=== PATIENT | female | born 1980 | race Hispanic/Latino ===

== ENCOUNTER 2018-11-22 08:16 | Emergency (ER) | payer SELFPAY ==
[2018-11-22] MEDS ORDERED: Ondansetron PF 4 MG/2 ML Vial ONE (09:04)
[2018-11-22 09:41] LABS: #Basophils 0.1 thou/uL (0.0-0.2); #Eosinphils 0.1 thou/uL (0.0-0.7); #Lymphocytes 1.7 thou/uL (1.20-3.40); #Monocytes 0.5 thou/uL (0.11-0.59); #Neutrophils 5.3 thou/uL (1.40-6.50); %Lymphocytes 22.6 % (21.0-51.0); %Monocytes 6.3 % (0.0-10.0); %Neutrophils 69.1 % (42.0-75.0); Mean Corpuscular HGB CONC 31.8 g/dL (32.0-36.0); Mean Corpuscular Hemoglobin 27.6 pg (27.0-31.0); Mean Corpuscular Volume 86.7 fL (78.0-98.0); Mean Platelet Volume 8.7 fL (7.4-10.4); Platelet Count 314 thou/uL (130-400); RBC Distribution Width 15.9 % (11.5-14.5); White Blood Cell (WBC) Count 7.7 thou/uL (4.8-10.8)
[2018-11-22 09:52] LABS: BHCG - Serum POSITIVE (NEGATIVE); Pregs Control Background? CLEAR/WHITE (CLR/WHITE); Pregs Control Bar Appear? YES (CONTROL BAR)
[2018-11-22 09:53] LABS: Bilirubin Negative (Negative); Blood, Urine Negative (Negative); Clarity CLOUDY (Clear); Glucose, Urine (Dipstick) Negative (Negative); Leukocyte Negative (Negative); Nitrite Negative (Negative); Protein, Urine (Dipstick) Negative (Neg-Trace); Specific Gravity, Urine 1.014 (1.002-1.036); Urobilinogen 0.2 mg/dL (0.2-1.0); pH, Urine 7.5 (5.0-9.0)
--- NOTE | 2018-11-22 10:33 | ULT ---
ULTRASOUND PELVIS DOPPLER DUPLEX: HISTORY: A 38-year-old female with positive test, nausea, and vomiting. Rule out ectopic . TECHNIQUE: Transabdominal transducer used to evaluate intrapelvic contents with raymond scale, color flow, and spec tral analysis. FINDINGS: There is an intrauterine gestational sac. Intrauterine pole. [place] rump length 1.8 cm corresponding to 8w 2d. No subchorionic hemorrhage. heart rate: 160 bpm. No free fluid in the cul-de-sac. No evidence of corpus luteal cyst. Normal-sized bilateral ovaries with blood flow demonstrated by Doppler. IMPRESSION: 1. Live intrauterine 1st trimester gestation estimated to be 8 weeks 2 days gestational age. 2. No evidence of complications. POS: RADHA
[2018-11-22 10:45] LABS: Albumin 3.5 g/dL (3.5-5.0); Calcium 8.4 mg/dL (7.8-10.44); Chloride 105 mmol/L (98-107); Potassium 3.9 mmol/L (3.5-5.1); Sodium 133 mmol/L (136-145)
[2018-11-22 10:48] LABS: Globulin 2.9 g/dL (2.4-3.5); Glucose 67 mg/dL (70-105); Protein, Total 6.4 g/dL (6.0-8.3)
[2018-11-22 10:49] LABS: Anion Gap 9 mmol/L (10-20); Carbon Dioxide 23 mmol/L (22-29)
[2018-11-22 10:50] LABS: Bilirubin, Total 0.2 mg/dL (0.2-1.2)
[2018-11-22 10:51] LABS: Alkaline Phosphatase 47 U/L (40-150); Calc. Creatinine Clearance 0 mL/min (70-130); Estimated GFR-MDRD Greater than 90
[2018-11-22 10:52] LABS: BUN (Urea Nitrogen) 7 mg/dL (7.0-18.7)
[2018-11-22 10:53] LABS: AST (SGOT) 14 U/L (5-34)
[2018-11-22 10:54] LABS: ALT (SGPT) 10 U/L (8-55)
== END 2018-11-22 11:10 | disposition home or self-care (01) ==
LOC: ERS 08:16
DX: O21.0 Mild hyperemesis gravidarum (principal); O99.341 Other mental disorders complicating pregnancy, first trimester; F41.9 Anxiety disorder, unspecified; F31.9 Bipolar disorder, unspecified; O99.331 Smoking (tobacco) complicating pregnancy, first trimester; Z79.899 Other long term (current) drug therapy; Z3A.01 Less than 8 weeks gestation of pregnancy
CPT/HCPCS: 36415; 76856; 80053; 81003; 84702; 84703; 85025; 86900; 86901; 87804; 93976; 96361; 96374; J2405

== ENCOUNTER 2018-11-26 20:21 | Emergency (ER) | payer SELFPAY ==
[2018-11-26 21:40] LABS: #Basophils 0.1 thou/uL (0.0-0.2); #Eosinphils 0.1 thou/uL (0.0-0.7); #Lymphocytes 2.4 thou/uL (1.20-3.40); #Monocytes 0.6 thou/uL (0.11-0.59); #Neutrophils 5.9 thou/uL (1.40-6.50); %Basophils 0.7 % (0.0-1.0); %Eosinophils 1.3 % (0.0-10.0); %Lymphocytes 25.8 % (21.0-51.0); %Monocytes 7.1 % (0.0-10.0); %Neutrophils 65.1 % (42.0-75.0); Hemoglobin 11.8 g/dL (12.0-16.0); Mean Corpuscular Hemoglobin 28.4 pg (27.0-31.0); Mean Platelet Volume 7.4 fL (7.4-10.4); Platelet Count 322 thou/uL (130-400); RBC Distribution Width 15.1 % (11.5-14.5); Red Blood Cell (RBC) Count 4.16 mill/uL (4.20-5.40); White Blood Cell (WBC) Count 9.1 thou/uL (4.8-10.8)
[2018-11-26 22:00] LABS: ALT (SGPT) 13 U/L (8-55); AST (SGOT) 16 U/L (5-34); Albumin 3.9 g/dL (3.5-5.0); Alkaline Phosphatase 54 U/L (40-150); Anion Gap 10 mmol/L (10-20); BUN (Urea Nitrogen) 13 mg/dL (7.0-18.7); Bilirubin, Total Less than 0.2 mg/dL (0.2-1.2); Calc. Creatinine Clearance 0 mL/min (70-130); Calcium 9.5 mg/dL (7.8-10.44); Carbon Dioxide 27 mmol/L (22-29); Chloride 101 mmol/L (98-107); Estimated GFR-MDRD 74; Globulin 3.3 g/dL (2.4-3.5); Glucose 94 mg/dL (70-105); Potassium 3.8 mmol/L (3.5-5.1); Protein, Total 7.2 g/dL (6.0-8.3); Sodium 134 mmol/L (136-145)
[2018-11-26] MEDS ORDERED: Ondansetron ODT 4 MG TAB ONE (22:12)
[2018-11-26 22:13] LABS: Bilirubin Negative (Negative); Blood, Urine Negative (Negative); Glucose, Urine (Dipstick) Negative (Negative); Leukocyte Negative (Negative); Nitrite Negative (Negative); Protein, Urine (Dipstick) Negative (Neg-Trace); Specific Gravity, Urine 1.019 (1.002-1.036); Urobilinogen 0.2 mg/dL (0.2-1.0); pH, Urine 7.5 (5.0-9.0)
[2018-11-26 22:14] LABS: Clarity Slightly Cloudy (Clear)
== END 2018-11-26 23:38 | disposition home or self-care (01) ==
LOC: ERS 20:21
DX: O21.9 Vomiting of pregnancy, unspecified (principal); O99.331 Smoking (tobacco) complicating pregnancy, first trimester; Z3A.01 Less than 8 weeks gestation of pregnancy
CPT/HCPCS: 36415; 80053; 81003; 85025; 87086; 87186; 99284; Q0162

== ENCOUNTER 2019-06-04 15:35 | Inpatient (IN) | payer OTHER ==
[2019-06-04 15:51] VITALS: BMI 25.7
[2019-06-04] MEDS ORDERED: Ondansetron PF 4 MG/2 ML Vial IVP PRN (15:55)
[2019-06-04] MEDS: Lactated Ringer's 1,000 ML IV SCH (15:59)
[2019-06-04] MEDS ORDERED: hydrALAZINE 20 MG/ML VIAL ONE (16:02)
[2019-06-04] MEDS: hydrALAZINE 20 MG/ML VIAL SLOW IVP PRN ×2 (16:04→19:38)
[2019-06-04] MEDS ORDERED: Betamet Acet/Betamet Na Ph 30 MG/5 ML VIAL ONE (16:18)
[2019-06-04] MEDS: Betamet Acet/Betamet Na Ph 30 MG/5 ML VIAL IM SCH (16:27)
[2019-06-04 16:35] LABS: Hemoglobin 9.2 g/dL (12.0-16.0); Mean Corpuscular HGB CONC 32.3 g/dL (32.0-36.0); Mean Corpuscular Volume 80.5 fL (78.0-98.0); Platelet Count 175 thou/uL (130-400); RBC Distribution Width 16.2 % (11.5-14.5); Red Blood Cell (RBC) Count 3.53 mill/uL (4.20-5.40); White Blood Cell (WBC) Count 7.3 thou/uL (4.8-10.8)
[2019-06-04 17:00] LABS: ALT (SGPT) 15 U/L (8-55); AST (SGOT) 26 U/L (5-34); Albumin 2.9 g/dL (3.5-5.0); Alkaline Phosphatase 290 U/L (40-150); Anion Gap 14 mmol/L (10-20); BUN (Urea Nitrogen) 15 mg/dL (7.0-18.7); Bilirubin, Total 0.2 mg/dL (0.2-1.2); Calc. Creatinine Clearance 93 mL/min (70-130); Calcium 8.5 mg/dL (7.8-10.44); Carbon Dioxide 21 mmol/L (22-29); Chloride 106 mmol/L (98-107); Estimated GFR-MDRD 83; Globulin 3.3 g/dL (2.4-3.5); Glucose 83 mg/dL (70-105); Potassium 4.7 mmol/L (3.5-5.1); Protein, Total 6.2 g/dL (6.0-8.3); Sodium 136 mmol/L (136-145)
[2019-06-04 17:19] LABS: Syphilis Antibody Nonreactive (Nonreactive)
[2019-06-04 17:20] LABS: HBSAg Index 0.13 S/CO (0-0.99); HIV (1/2) Antibody/Antigen Non-Reactive (NonReactive); HIV 1/2 INDEX 0.06 S/CO (<1.00); Hep B Surf Ag Non-Reactive S/CO (NonReactive)
--- NOTE | 2019-06-04 17:30 | ULT ---
EXAM: OB ultrasound COMPARISON: None HISTORY: female. Evaluate size, dates, and anatomy. -induced hypertension. No care. TECHNIQUE: Multiplanar grayscale and color Doppler images were obtained in a transabdominal ult rasound. FINDINGS: There is a single live intrauterine with heart rate of 150 bpm. A survey wa s performed which is unremarkable but limited. The intracranial structures and face were not well visualized. The head, heart, stomach, kidneys, umbilical cord, umbilical cord insertion, spine, and e xtremities were evaluated and were unremarkable. Estimated weight is 2345 g. Average age of the fetus based off today's examination is 33 weeks 4 days. BPD 8.13 cm -- 32 weeks 5 days HC 30.25 cm -- 33 weeks 4 days AC 30.95 cm -- 34 weeks 6 days FL 6.44 cm -- 33 weeks 2 days The placenta is posterior in location without focal abnormality. CHRISTOPHER is 11.3 cm which is normal. The cervix is normal in length. There is no evidence of placenta previa. IMPRESSION: Single live intrauterine with estimated age of 33 weeks 4 days.
[2019-06-04 17:59] LABS: Amphetamine Detected (NotDetected); Cocaine Metabolite Screen Not Detected (NotDetected); Medtox Reader # READER 4; Methamphetamine Detected (NotDetected); Phencyclidine (PCP) Not Detected (NotDetected); THC/Cannabinoid Screen Not Detected (NotDetected)
[2019-06-04 18:00] LABS: Barbiturates Screen Not Detected (NotDetected); Benzodiazepine Screen Not Detected (NotDetected); Medtox Control Line Valid? VALID (VALID); Methadone Not Detected (NotDetected); Opiate Screen Not Detected (NotDetected); Oxycodone Screen Not Detected (NotDetected); Tricyclic Screen Not Detected (NotDetected)
[2019-06-04 18:02] LABS: Bilirubin Negative (Negative); Blood, Urine Negative (Negative); Clarity Clear (Clear); Glucose, Urine (Dipstick) Normal (Negative); Leukocyte 25 Leu/uL (Negative); Nitrite Negative (Negative); Protein, Urine (Dipstick) Negative (Neg-Trace); RBC/HPF 0-3 HPF (0-3); Squamous Epithelial 0-3 HPF (0-3); Urobilinogen Normal mg/dL (Less than 2)
[2019-06-04 18:03] LABS: Bacteria/HPF 1+ HPF (None Seen)
[2019-06-04] MEDS ORDERED: Calcium Gluc 4.6 MEQ/10 ML (100 MG/ML) SLOW IVP PRN (18:28)
[2019-06-04] MEDS ORDERED: Misoprostol 100 MCG TAB ONE (18:28)
[2019-06-04] MEDS ORDERED: Magnesium Sulfate 20 GM/WATER 500 ML BAG IVPB SCH (18:30)
[2019-06-04] MEDS: Magnesium Sulfate 20 gm/500 ml 20 GM/500 ML BAG IVPB SCH (18:41)
[2019-06-05] MEDS: Acetaminophen 500 MG TAB PO PRN (00:02)
--- NOTE | 2019-06-05 02:11 | HP ---
The patient has had no care. CHIEF COMPLAINT: Elevated blood pressures. HISTORY OF PRESENT ILLNESS: The patient is a 39-year-old G9, P7 female, with an intrauterine at 35 weeks and 5 days, dated by an 8-week ultrasound done earlier this year in the emergency room. The patient was picked up last night for parole violation and was taken to [facility] and there was noted to have elevated blood pressures and not feeling well and came here for evaluation. The patient reports headache, some shortness of breath. She denies any care with this . She reports marijuana use and methamphetamine use with the last methamphetamine use about a week to 2 weeks ago. The patient denies any previous history of preeclampsia with previous 8 pregnancies. PAST MEDICAL HISTORY: Negative. PAST SURGICAL HISTORY: Negative. ALLERGIES: NO KNOWN DRUG ALLERGIES. MEDICATIONS: None. SOCIAL HISTORY: Has had a very unstable social situation. She has been recently incarcerated for parole violation. The patient again uses methamphetamines, smokes marijuana and tobacco. The patient also reports drinking 3 beers a week early in the . PHYSICAL EXAMINATION: VITAL SIGNS: Initial blood pressure is 181/96, heart rate of 78, respiratory rate of 18, saturating 100% on room air, temperature 97.9. GENERAL: She appears to be in no acute distress. She is alert, oriented, cooperative, and pleasant to interact with. HEAD: Normocephalic, atraumatic. LUNGS: Clear to auscultation bilaterally. HEART: Regular rate and rhythm. ABDOMEN: Gravid. She has some tenderness to deviation of the uterus to the left and right. No fundal tenderness. EXTREMITIES: Nontender, nonedematous with 1+ edema bilaterally. DTRs are 1+. CERVICAL: Closed. OB LABS: Hepatitis B surface antigen nonreactive. HIV nonreactive. RPR nonreactive. All performed today. Drug screen is positive for methamphetamines. Urine test is negative for protein. CMP has a sodium of 136, potassium of 4.7, creatinine of 0.77, glucose of 83, AST of 26, ALT of 15. White count of 7.3, hemoglobin of 9.2, hematocrit 28.4, MCV of 80.5, and platelets of 175,000. Ultrasound shows a fetus with CHRISTOPHER of 11 and estimated weight of 2245 g, posterior placenta, and no visible gross abnormalities. The patient has required 2 doses of IV hydralazine over a three and half hour period. Now we are requiring a 3rd dose. She has been placed on magnesium for seizure prophylaxis. ASSESSMENT AND PLAN: The patient is a 39-year-old grand multiparous female with an intrauterine at 35 weeks and 5 days, dated by an 8-week ultrasound, who has received no care. The patient has a history of methamphetamine, marijuana abuse. She has recently been incarcerated and has evidence of severe gestational hypertension, though no overt signs at this time of preeclampsia. The patient has required multiple treatments for her blood pressures given her gestational age of 35 and 5 to 36 weeks gestation depending on how it is calculated. Indication at this time is for delivery. Fetus has a reactive NST in category 1 tracing. Betamethasone has been given to her to accelerate lung maturity. We will begin her induction of labor with Cytotec once the patient is on board. The patient at this time is refusing any compliance with induction. I have spent about 10 minutes explaining to her the natural course of these hypertensive disorders in and the long-term treatment plan. We will continue to treat her blood pressures, and continue the patient on magnesium and reassess the patient's compliance with these recommendations in the next hour or 2. Job ID: [id number]
[2019-06-05] MEDS: Lactated Ringer's 1,000 ML IV SCH ×3 (03:05→19:18)
[2019-06-05] MEDS: Magnesium Sulfate 20 gm/500 ml 20 GM/500 ML BAG IVPB SCH (03:05)
--- NOTE | 2019-06-05 09:16 | PRG ---
DATE OF SERVICE: 06/05/2019 SUBJECTIVE: The patient is a 39-year-old female, admitted yesterday for severe elevated blood pressures at the [facility] and was admitted for gestational hypertension with severe features requiring 3 doses of IV hydralazine over the first several hours of care. The patient was ultimately placed on magnesium since yesterday evening. Late, the patient has had normal to mild range blood pressures. This morning, she reports that she slept okay last night. She denies any headache. Denies shortness of breath. Denies uterine contractions or vaginal bleeding. OBJECTIVE: VITAL SIGNS: Most recent blood pressure is 127/67, heart rate of 84, temperature 98.4, and respiratory rate of 16. GENERAL: She appears to be in no acute distress. She is alert and oriented, cooperative and pleasant to interact with. HEENT: Head is normocephalic and atraumatic. LUNGS: Clear to auscultation bilaterally. HEART: Has a regular rate and rhythm. ABDOMEN: Gravid and soft. EXTREMITIES: Nontender. ASSESSMENT AND PLAN: The patient is a 39-year-old female in [facility], who was brought to Labor and Delivery at 35 weeks and 5 days' gestation with severely elevated blood pressures. The patient presented with headache and some shortness of breath. She was ultimately treated with 3 dose of IV hydralazine, placed on magnesium for seizure prophylaxis. The patient has since had normal to mild range blood pressures and has refused induction of labor. Plan at this time would be expected management through steroid course. Should the patient or when the patient starts spiking severe range pressures again to readdress the recommendation for induction. The patient has on 2 different occasions communicated to me the desire not to live. I will be placing Case Management consult in for them to further evaluate. The patient has explicitly stated she does not have desire to harm herself. Job ID: [id number]
[2019-06-05] MEDS: Betamet Acet/Betamet Na Ph 30 MG/5 ML VIAL IM SCH (16:51)
[2019-06-05] MEDS ORDERED: Ondansetron ODT 4 MG TAB PO PRN (22:28)
[2019-06-05] MEDS ORDERED: Bisacodyl 10 MG SUPP PR PRN (22:50)
[2019-06-05] MEDS ORDERED: Benzocaine-Menthol 82.5 ML CAN TOP PRN (22:50)
[2019-06-05] MEDS ORDERED: Promethazine HCl 25 MG/ML VIAL IM PRN (22:50)
[2019-06-05] MEDS ORDERED: hydrALAZINE 20 MG/ML VIAL SLOW IVP PRN (22:50)
[2019-06-05] MEDS ORDERED: Preparation H Ointment 28 GM TUBE PR PRN (22:50)
[2019-06-05] MEDS ORDERED: Milk Of Magnesia 30 ML UDCUP PO PRN (22:50)
[2019-06-05] MEDS ORDERED: diphenhydrAMINE 25 MG CAP PO PRN (22:50)
[2019-06-05] MEDS ORDERED: NS / Oxytocin 40 units/1000ml 1,000 ML IV SCH (23:00)
[2019-06-05] MEDS ORDERED: Lactated Ringer's 1,000 ML IV SCH (23:15)
--- NOTE | 2019-06-06 05:39 | PDOC.OBAPN ---
FMR OB AP PN: Sub - Interval History Hospital Day: 2 Chief Complaint: No PNC, Elevated BP Indentification: 39 year old at 36.0 wks Interval History: Denies ctx, LoF. Endorses movement. FMR OB AP PN: Obj - Maternal Vital signs: BP: 134/74 HR: 90 RR: 16 Tmax: 98.5F Pox: 93% on RA Wt: 59.9 kg - Heart Tones Baseline: 120 (Last shift NST) Variability: moderate Acceleration: present Deceleration: absent [place] contractions every: None FMR OB AP PN: Exam - Physical Exam General: NAD HEENT: MMM Heart: RRR, pulses present, no edema General: no respiratory distress Abdomen: soft, gravid, non-tender Musculoskeletal: pulses present, FROM in all four extremities, no atrophy Neurological: no tremor, no focal deficit Skin: no rash, capillary refill <2 seconds Deviation from normal: Multiple tattoos Lymphatic: no unusual bruising or bleeding, no purpura Psychiatric: intact recent and remote memory FMR OB AP PN: A/P - Problem List (1) Drug use affecting Current Visit: Yes Status: Acute Code(s): O99.320 - DRUG USE COMPLICATING , UNSPECIFIED TRIMESTER (2) Current Visit: Yes Status: Acute Qualifiers: Weeks of gestation: 36 weeks Qualified Code(s): Z3A.36 - 36 weeks gestation of (3) Anemia affecting in third trimester Current Visit: Yes Status: Acute Code(s): O99.013 - ANEMIA COMPLICATING , THIRD TRIMESTER (4) Gestational HTN Current Visit: Yes Status: Acute Code(s): O13.9 - GESTATIONAL HTN W/O SIGNIFICANT PROTEINURIA, UNSP TRIMESTER (5) No care in current in third trimester Current Visit: Yes Status: Acute Code(s): O09.33 - SUPRVSN OF PREG W INSUFFICIENT ANTENAT CARE, THIRD TRIMESTER Disposition: 39 year old female delivered at 36.0 wks via gHTN with severe range pressures - BP ranging from 134/74-151/78 - Has not required PRN medication - After thorough discussion again this AM regarding IOL, patient seems more open to the idea. We agreed to readdress a little later this AM. As of now, patient's BP appear well controlled and patient has not required any PRN medications. - S/p betamethasone x2 - Qshift NST - PRN medication for BP >160/110 Drug use affecting - UDS positive for methamphetamines and amphetamines - CM consulted Anemia of - Patient not on any iron supplementation during - At risk for PPH given grandmultiparity Grandmultip - At risk for PPH No PNC - CM consulted - UDS positive - Patient violated parole on 06/04 which caused her to be placed back into [facility]. Dispo: BP's currently under good control. Will continue to monitor. May be able to delay IOL if BP's remain under good control. Plan for patient to stay in hospital during remainder of .
[2019-06-06] MEDS ORDERED: Ibuprofen 800 MG TAB PO SCH (06:00)
[2019-06-06] MEDS ORDERED: Ferrous Sulfate 325 MG TAB PO SCH (08:00)
[2019-06-06] MEDS ORDERED: Prenatal Vitamin 1 TAB PO SCH (09:00)
[2019-06-06] MEDS ORDERED: Docusate Calcium (SURFAK) 240 MG CAP PO SCH (09:00)
[2019-06-06] MEDS ORDERED: Adacel (T-DAP) 0.5 ML SYRINGE IM ONE (09:00)
--- NOTE | 2019-06-07 00:57 | PDOC.EVN ---
Event Note - Event Note Event Note: 36 1/7 weeks. No c/o this AM, denies WILSON or visual changes. VSS AF No severe range BPs seen. Currently on monitor; FHTs are reassuring. Plan: induce if severe range BPs recur, steroids have been given.
[2019-06-07] MEDS: Docusate 100 MG CAP PO SCH ×2 (09:35→23:49)
--- NOTE | 2019-06-07 20:32 | PDOC.EVN ---
Event Note - Event Note Event Note: FARZANEH At BP note: Called by RN at PP price that BP was 160/81 and retaken was 159/80 as she was "arguing with the guard" (inmate patient). We will recheck in 15 minutes and if >/==160/100 we may bring back to L&D for monitoring here.
--- NOTE | 2019-06-08 06:10 | PDOC.EVN ---
Event Note - Event Note Event Note: PREETHIXimena Martha EGA 36 weeks 2 days patient seen at bedside at 0600, [id number] Here for BP obs until 37 weeks, then IOL S. Feels well (guard in room) O. Had some isolated high BPs last PM (see prior notes), but now better...120s/ 60s this am. Otherwise 140/90s. Sono done recently on admit no VB no LOF A/P: patient in-custody for parole violation, pos for meth on admit...here for BP obs. labs done here...wnl, rubella non-immune. Continue BP obs for now...mild BP elevations at this time
[2019-06-08] MEDS: Docusate 100 MG CAP PO SCH ×2 (09:49→23:03)
[2019-06-08 19:48] LABS: Chlamydia by PCR DETECTED (NotDetected); GC by PCR Not Detected (NotDetected)
[2019-06-09] MEDS ORDERED: Azithromycin 250 MG TAB PO SCH (07:00)
--- NOTE | 2019-06-09 08:16 | PRG ---
DATE OF SERVICE: 06/09/2019 TIME OF SERVICE: 0655 hours. SUBJECTIVE: The patient is resting comfortably. She denies headache or blurred vision. She states her blood pressure is better, status post "drama," which apparently involved some visits from law enforcement officers yesterday. She reports an active fetus. OBJECTIVE: VITAL SIGNS: Maximum systolic blood pressure was 171, maximum diastolic was 93. Current blood pressure 119/68, pulse 76, temperature 98.9, and respirations 18. HEENT: Within normal limits. LUNGS: Clear to auscultation bilaterally. HEART: Regular rate and rhythm. ABDOMEN: Soft and nontender. FHTs are 140s. LABORATORY DATA: The patient's initial laboratory values were reviewed. Of note, she had a positive Chlamydia, DNA, PCR, which is a new result and had not previously been treated. She is also noted to be rubella nonimmune. IMPRESSION: 1. Gestational hypertension with occasional severe range values at 36 weeks and 3 days. 2. Status post incarceration. 3. Positive Chlamydia. PLAN: Continue price rest, daily NSTs, induction of labor at 37 weeks, azithromycin 1 g p.o. x1 today. Job ID: [id number]
[2019-06-09 09:35] LABS: ALT (SGPT) 29 U/L (8-55); AST (SGOT) 34 U/L (5-34); Alkaline Phosphatase 250 U/L (40-150); Anion Gap 13 mmol/L (10-20); BUN (Urea Nitrogen) 15 mg/dL (7.0-18.7); Bilirubin, Total 0.2 mg/dL (0.2-1.2); Calc. Creatinine Clearance 90 mL/min (70-130); Calcium 8.5 mg/dL (7.8-10.44); Carbon Dioxide 20 mmol/L (22-29); Chloride 104 mmol/L (98-107); Estimated GFR-MDRD 81; Globulin 3.4 g/dL (2.4-3.5); Glucose 104 mg/dL (70-105); Potassium 3.9 mmol/L (3.5-5.1); Protein, Total 6.4 g/dL (6.0-8.3); Sodium 133 mmol/L (136-145)
[2019-06-09] MEDS: Docusate 100 MG CAP PO SCH ×2 (09:36→21:47)
[2019-06-09 10:08] LABS: Creatinine, Urine 117.45 mg/dL (47-110)
[2019-06-09 10:12] LABS: Band 2 % (5-11); Hemoglobin 9.5 g/dL (12.0-16.0); Lymphocytes 20 % (21-51); MDiff Complete? YES; Mean Corpuscular HGB CONC 33.1 g/dL (32.0-36.0); Mean Corpuscular Hemoglobin 26.6 pg (27.0-31.0); Mean Corpuscular Volume 80.2 fL (78.0-98.0); Mean Platelet Volume 9.3 fL (7.4-10.4); Metamyelocyte 1 % (0-0); Monocytes 4 % (0-10); Neutrophil 73 % (42-75); Nucleated RBC 1 % (0); Platelet Count 180 thou/uL (130-400); Platelet Morphology Comment Appears Adequate; Polychromasia SLIGHT = 2-3 cells (100X) (0-2/hpf); RBC Distribution Width 16.4 % (11.5-14.5); Red Blood Cell (RBC) Count 3.57 mill/uL (4.20-5.40); White Blood Cell (WBC) Count 9.3 thou/uL (4.8-10.8)
[2019-06-09 13:08] LABS: Amphetamine Not Detected (NotDetected); Barbiturates Screen Not Detected (NotDetected); Benzodiazepine Screen Not Detected (NotDetected); Cocaine Metabolite Screen Not Detected (NotDetected); Medtox Control Line Valid? VALID (VALID); Medtox Reader # READER 4; Methadone Not Detected (NotDetected); Methamphetamine Not Detected (NotDetected); Opiate Screen Not Detected (NotDetected); Oxycodone Screen Not Detected (NotDetected); Phencyclidine (PCP) Not Detected (NotDetected); THC/Cannabinoid Screen Not Detected (NotDetected); Tricyclic Screen Not Detected (NotDetected)
--- NOTE | 2019-06-09 20:29 | PDOC.EVN ---
Event Note - Event Note Event Note: When Reviewing vitals for the last 24hrs this morning when i came on shift pt was noted to have 2severe range pressures in the previous 12hrs. Further reviews show occasional severe pressures at times 1-2times a day. I repeated labs this AM. The only significant findings are urine protein to creatinine ratio of about 1 and a drug screen now neg for methamphetamines. Discussing this morning with the pt her blood pressures it seems her pressures spike with emotional stressors. She has not had another severe BP today. Should she start spike more repeatedly will start iol. Otherwise plan is iol at 37wks.
--- NOTE | 2019-06-10 08:27 | PRG ---
DATE OF SERVICE: 06/10/2019 SUBJECTIVE: The patient is a 39-year-old female with no previous care, admitted for gestational hypertension with intermittent severe pressures. In the last 24 hours, the patient has had one single severe blood pressure, this spontaneously resolved. This seems to be associated with very emotional exchange. Repeat laboratories at that time showed urine to protein creatinine ratio of 1, otherwise was unremarkable. The patient this morning reports that she is tolerating p.o., voiding on her own, tolerating a diet, ambulating, has no obstetric complaints. The NST last night showed a baseline in the one teens with moderate long-term variability. Positive accelerations. No decelerations. ASSESSMENT AND PLAN: The patient is a 39-year-old female with an intrauterine at 36 weeks and 4 days, who is in the hospital until 37 weeks for in-house management of gestational hypertension; at which time, induction of labor has been planned. The patient has no evidence warrants deviation from that plan at this time. Fetus has reactive NST. Job ID: [id number]
[2019-06-10] MEDS: Docusate 100 MG CAP PO SCH ×2 (08:39→21:32)
[2019-06-10] MEDS: Acetaminophen 500 MG TAB PO PRN (15:43)
[2019-06-10] MEDS: Calcium Carbonate 500 MG ChewTAB PO SCH (17:55)
--- NOTE | 2019-06-11 06:57 | PDOC.EVN ---
Event Note - Event Note Event Note: EGA now 36 weeks 5 days DX: Preeclampsia S. Doing well, good FM O. BPs reviewed, occasional 140/90s, otherwise normal range Last urine protein: proteinuric A/P: Preeclampsia, plan for IOL at 37 weeks
[2019-06-11] MEDS: Docusate 100 MG CAP PO SCH ×2 (08:30→21:32)
[2019-06-11] MEDS: Calcium Carbonate 500 MG ChewTAB PO SCH ×2 (08:30→21:32)
--- NOTE | 2019-06-12 08:48 | PRG ---
DATE OF SERVICE: 06/12/2019 SUBJECTIVE: The patient is a 39-year-old female, now 36 weeks and 6 days, admitted to the hospital for preeclampsia. The patient has had no care prior to presenting. Plan at this time is delivery at 37 weeks. The patient has had no complaints this morning. She is tolerating a diet, ambulating, having good pain control. No labor worries. Denies headache. Does not report shortness of breath. In the last 24 hours, the patient appears to have had one severe range pressure in last evening at 170/104 and before then her pressures in the last 24 hours have all been in the mild range. Plan at this time is possible induction of labor tonight or tomorrow depending on need for cervical ripening. OBJECTIVE: VITAL SIGNS: Current blood pressure is 148/72, temperature 98.5, pulse is 71, respiratory rate 16, and O2 saturation 98%. GENERAL: The patient appears to be in no acute distress. She is alert and oriented, cooperative and pleasant to interact with. BPP was performed last night as NST was unable to be performed due to inability to get the baby on the monitor. The results were 04/23. ASSESSMENT AND PLAN: The patient is a 39-year-old female with an intrauterine at 36 weeks and 6 days, admitted for in-house management of preeclampsia. Plan is induction of labor tonight or tomorrow. She does have a history of methamphetamine use and abuse with her most recent drug screen is negative. Job ID: [id number]
--- NOTE | 2019-06-12 08:50 | ULT ---
ULTRASOUND FOR BIOPHYSICAL PROFILE: Date: 06/12/19 INDICATION: Inability to trace cardiac activity. FINDINGS: The fetus received 2/2 for tone, 2/2 for breathing, 2/2 for movements, and 2/2 for amniotic fluid level, to give a total biophysical profile score of 8/8. Fetus is in vertex presentation. Placenta is posterior in location. No evidence of previa. CHRISTOPHER measur ed 14.5 cm. Cardiac activity estimated at 120 bpm. Cervix measured 3.2 cm. survey limited due t o advanced gestational age. IMPRESSION: Biophysical profile 8/8. POS: BH
[2019-06-12] MEDS: Calcium Carbonate 500 MG ChewTAB PO SCH ×2 (09:26→20:35)
[2019-06-12] MEDS: Docusate 100 MG CAP PO SCH ×2 (09:27→20:35)
--- NOTE | 2019-06-12 18:48 | PDOC.EVN ---
Event Note - Event Note Event Note: POS CT noted...we will RX with 1 gram ZMAX now Plan for cervical prep tonight for 37 week IOL
--- NOTE | 2019-06-12 18:49 | PDOC.EVN ---
Event Note - Event Note Event Note: Patient currently 36.6 s/p betamethasone x2 UDS + for meth on admission, repeat negative Positive for chlamydia, will treat with azithromycin Will repeat pre-e labs as considering induction later tonight
[2019-06-12] MEDS ORDERED: Azithromycin 250 MG TAB PO SCH (19:00)
[2019-06-12 19:35] LABS: #Basophils 0.1 thou/uL (0.0-0.2); #Eosinphils 0.2 thou/uL (0.0-0.7); #Lymphocytes 2.8 thou/uL (1.20-3.40); #Monocytes 0.7 thou/uL (0.11-0.59); #Neutrophils 7.9 thou/uL (1.40-6.50); %Basophils 0.6 % (0.0-1.0); %Eosinophils 1.6 % (0.0-10.0); %Monocytes 5.8 % (0.0-10.0); Hemoglobin 8.9 g/dL (12.0-16.0); Mean Corpuscular HGB CONC 32.8 g/dL (32.0-36.0); Mean Corpuscular Volume 79.1 fL (78.0-98.0); Mean Platelet Volume 9.4 fL (7.4-10.4); Platelet Count 177 thou/uL (130-400); RBC Distribution Width 16.9 % (11.5-14.5); Red Blood Cell (RBC) Count 3.44 mill/uL (4.20-5.40); White Blood Cell (WBC) Count 11.7 thou/uL (4.8-10.8)
[2019-06-12 19:55] LABS: ALT (SGPT) 17 U/L (8-55); AST (SGOT) 23 U/L (5-34); Alkaline Phosphatase 249 U/L (40-110); Anion Gap 13 mmol/L (10-20); BUN (Urea Nitrogen) 20 mg/dL (7.0-18.7); Bilirubin, Total 0.2 mg/dL (0.2-1.2); Calc. Creatinine Clearance 80 mL/min (70-130); Calcium 8.5 mg/dL (7.8-10.44); Carbon Dioxide 19 mmol/L (22-29); Chloride 107 mmol/L (98-107); Estimated GFR-MDRD 71; Globulin 3.5 g/dL (2.4-3.5); Glucose 103 mg/dL (70-105); Potassium 4.2 mmol/L (3.5-5.1); Protein, Total 6.5 g/dL (6.0-8.3); Sodium 135 mmol/L (136-145)
[2019-06-12 21:10] LABS: Creatinine, Urine 85.22 mg/dL (47-110)
--- NOTE | 2019-06-12 21:37 | PDOC.EVN ---
Event Note - Event Note Event Note: Here at Bedside in LDR4 Patient arrived to L&D to prepare for IOL, possible cytotec Patient w/o SXS currently. EGA 36.6 weeks IOL for Preeclampsia Exam pending
[2019-06-12] MEDS ORDERED: Calcium Gluc 4.6 MEQ/10 ML (100 MG/ML) SLOW IVP PRN (21:48)
[2019-06-12] MEDS ORDERED: Magnesium Sulfate 20 GM/WATER 500 ML BAG IVPB SCH (22:00)
[2019-06-12] MEDS: Misoprostol 100 MCG TAB VAG SCH (23:14)
[2019-06-13] MEDS: Misoprostol 100 MCG TAB VAG SCH (02:18)
--- NOTE | 2019-06-13 02:46 | PDOC.LDPN ---
Labor & Delivery Progress Note - Subjective Subjective: comfortable - Objective Abnormal vital signs: 143/75 - Assessment (1) Anemia affecting in third trimester Code(s): O99.013 - ANEMIA COMPLICATING , THIRD TRIMESTER Current Visit: Yes Status: Acute (2) Drug use affecting Code(s): O99.320 - DRUG USE COMPLICATING , UNSPECIFIED TRIMESTER Current Visit: Yes Status: Acute (3) Gestational HTN Code(s): O13.9 - GESTATIONAL HTN W/O SIGNIFICANT PROTEINURIA, UNSP TRIMESTER Current Visit: Yes Status: Acute (4) No care in current in third trimester Code(s): O09.33 - SUPRVSN OF PREG W INSUFFICIENT ANTENAT CARE, THIRD TRIMESTER Current Visit: Yes Status: Acute (5) Current Visit: Yes Status: Acute Qualifiers: Weeks of gestation: 36 weeks Qualified Code(s): Z3A.36 - 36 weeks gestation of -: # pre-eclampsia - pr/cr 1.3 - last pressure 143/75 - no headache, no visual changes - start mag when in active labor # - 250/-3 @ 0230, 2nd cytotec placed - FHT 140 baseline, mod variability, accels present, no decels
[2019-06-13] MEDS ORDERED: Fentanyl 4 mcg/Bup 0.1% Cadd 100 ML ONE (03:45)
--- NOTE | 2019-06-13 04:04 | PDOC.EVN ---
Event Note - Event Note Event Note: At bedside for Delivery, Buse here with me: C/C exam
--- NOTE | 2019-06-13 04:08 | PDOC.OPDEL ---
OB Operative/Delivery Note Delivery Dr/Surgeon: Faisal Assist: Serna (Staff) Pre-Delivery Diagnosis: active labor, medically indicated induction (PIH ( Preeeclampsia)), other (GrandMultip, PIH) Procedure/Post Delivery Dx: spontaneous vaginal delivery Weeks gestation: 37 Anesthesia: epidural - Findings A Sex: male - 1 min: 8 - 5 min: 9 - Additional Findings/Plan Placenta delivered: spontaneous (0409; marcelo..intact) Repaired Obstetrical Laceration: none Estimated blood loss: 650 Compilations/Other Findings: Vigorous male at 0406 No complications No lacs cytotec 800mcg given MD due to grandmultip state Post delivery plan: routine recovery (mag not used as patient quickly progressed. Will start Mag PP)
[2019-06-13] MEDS ORDERED: Misoprostol 200 MCG TAB ONE (04:09)
[2019-06-13] MEDS ORDERED: Lidocaine 1% (PF) 30 ML VIAL ONE (04:09)
[2019-06-13] MEDS: NS / Oxytocin 40 units/1000ml 1,000 ML ONE ×2 (04:38→05:07)
[2019-06-13] MEDS: Acetaminophen 500 MG TAB PO PRN (05:40)
[2019-06-13] MEDS ORDERED: Calcium Gluconate 4.6 MEQ in Sodium Chloride 0.9% 100 ML IVPB PRN (07:15)
[2019-06-13] MEDS ORDERED: Promethazine HCl 25 MG/ML VIAL IM PRN (07:15)
[2019-06-13] MEDS ORDERED: Milk Of Magnesia 30 ML UDCUP PO PRN (07:15)
[2019-06-13] MEDS ORDERED: Lanolin Ointment 7 GM TUBE TOP PRN (07:15)
[2019-06-13] MEDS ORDERED: Bisacodyl 10 MG SUPP PR PRN (07:15)
[2019-06-13] MEDS ORDERED: hydrALAZINE 20 MG/ML VIAL SLOW IVP PRN (07:15)
[2019-06-13] MEDS ORDERED: Acetaminophen 325 MG TAB PO PRN (07:15)
[2019-06-13] MEDS ORDERED: Ondansetron PF 4 MG/2 ML Vial IVP PRN (07:15)
[2019-06-13] MEDS ORDERED: Adacel (T-DAP) 0.5 ML SYRINGE IM ONE (07:15)
[2019-06-13] MEDS ORDERED: Benzocaine-Menthol 82.5 ML CAN TOP PRN (07:15)
[2019-06-13] MEDS ORDERED: NS / Oxytocin 40 units/1000ml 1,000 ML IV SCH (07:15)
[2019-06-13] MEDS: Ferrous Sulfate 325 MG TAB PO SCH ×2 (08:46→21:21)
[2019-06-13] MEDS: Docusate Calcium (SURFAK) 240 MG CAP PO SCH ×2 (08:46→21:21)
[2019-06-13] MEDS: Magnesium Sulfate 20 gm/500 ml 20 GM/500 ML BAG IVPB SCH ×2 (13:43→23:38)
[2019-06-13] MEDS: Ibuprofen 800 MG TAB PO SCH ×2 (14:00→21:20)
[2019-06-13] MEDS ORDERED: Acetaminophen 500 MG TAB PO PRN (21:27)
[2019-06-14] MEDS ORDERED: Lanolin Ointment 7 GM TUBE TOP PRN (06:24)
[2019-06-14] MEDS ORDERED: Milk Of Magnesia 30 ML UDCUP PO PRN (06:24)
[2019-06-14] MEDS ORDERED: hydrALAZINE 20 MG/ML VIAL SLOW IVP PRN (06:24)
[2019-06-14] MEDS ORDERED: Preparation H Ointment 28 GM TUBE PR PRN (06:24)
[2019-06-14] MEDS ORDERED: NS / Oxytocin 40 units/1000ml 1,000 ML IV SCH (06:24)
[2019-06-14] MEDS ORDERED: diphenhydrAMINE 25 MG CAP PO PRN (06:24)
[2019-06-14] MEDS ORDERED: Adacel (T-DAP) 0.5 ML SYRINGE IM ONE (06:24)
[2019-06-14] MEDS ORDERED: Bisacodyl 10 MG SUPP PR PRN (06:24)
[2019-06-14] MEDS ORDERED: Ondansetron PF 4 MG/2 ML Vial IVP PRN (06:24)
[2019-06-14] MEDS: Ibuprofen 800 MG TAB PO SCH (07:49)
--- NOTE | 2019-06-14 08:04 | PRG ---
DATE OF SERVICE: 06/14/2019 SUBJECTIVE: The patient is day 1, status post a term spontaneous vaginal delivery induced secondary for preeclampsia. The patient is now off magnesium as of 4 o'clock this morning for seizure prophylaxis. She reports no concerns. She is tolerating a diet, voiding on her own having decreased lochia, and moderate pain control. OBJECTIVE: VITAL SIGNS: In the last 24 hours, the patient's blood pressures have been primarily in the normal range with occasional mild range pressures and one severe pressure this morning around 6 o'clock. Temperature is 97.9, pulse of 82, respiratory rate of 20, saturating 99% on room air. Her most recent blood pressure is 152/96. GENERAL: She appears to be in no acute distress. She is alert, oriented, cooperative, and pleasant to interact with. HEENT: Head is normocephalic and atraumatic. LUNGS: Clear to auscultation bilaterally. HEART: Has regular rate and rhythm. ABDOMEN: Soft. Fundus is firm. EXTREMITIES: Nontender, nonedematous. LABORATORY DATA: Her post-delivery hemoglobin is still pending. ASSESSMENT AND PLAN: The patient is a 39-year-old female, day 1 for term spontaneous vaginal delivery, induced for preeclampsia. The patient's blood pressures have been primarily in the normal to mild range. I will continue to watch her for the next 24 hours. If she begins to spike severe pressures, will be placed on blood pressure medications and will continue in-house management. Job ID: [id number]
[2019-06-14 09:16] LABS: Hemoglobin 6.7 g/dL (12.0-16.0); Mean Corpuscular HGB CONC 32.1 g/dL (32.0-36.0); Mean Corpuscular Hemoglobin 25.7 pg (27.0-31.0); Mean Platelet Volume 8.4 fL (7.4-10.4); Platelet Count 211 thou/uL (130-400); RBC Distribution Width 17.6 % (11.5-14.5); Red Blood Cell (RBC) Count 2.59 mill/uL (4.20-5.40); White Blood Cell (WBC) Count 10.2 thou/uL (4.8-10.8)
[2019-06-14] MEDS: Docusate Calcium (SURFAK) 240 MG CAP PO SCH ×2 (09:17→21:06)
[2019-06-14] MEDS: Ferrous Sulfate 325 MG TAB PO SCH ×2 (09:17→17:22)
[2019-06-14] MEDS: Prenatal Vitamin 1 TAB PO SCH (09:17)
[2019-06-14] MEDS: Misoprostol 100 MCG TAB VAG SCH (09:45)
[2019-06-14] MEDS: Acetaminophen 500 MG TAB PO PRN ×2 (11:45→13:36)
--- NOTE | 2019-06-14 12:01 | PDOC.EVN ---
Event Note - Event Note Event Note: FARZANEH murray called just now oliver RN on PP price: patient went to BR and felt lightheaded. HH this AM was 6.04/04 Passed small clot but no active VB now I have ordered a repeat HH and will give 1L LR bolus. Pulse 80s BP 130/80s Suspect vasovagal vs other...follow vitals and HH. T&C for standby
[2019-06-14 12:15] LABS: Hemoglobin 6.1 g/dL (12.0-16.0)
[2019-06-14] MEDS ORDERED: Lactated Ringer's 1,000 ML IV SCH (12:15)
--- NOTE | 2019-06-14 12:15 | PDOC.EVN ---
Event Note - Event Note Event Note: At bedside now patient A&O No active VB on pad now Cough maneuvers did not expel any additional clots I have requested recheck vitals in 5 min Sono not ordered as I dont suspect retained POC at this time
--- NOTE | 2019-06-14 13:10 | PDOC.EVN ---
Event Note - Event Note Event Note: PRBC note: HH from this PM= 6.1 and 18 (was 6.7/20). As the patient felt lightheaded...I will order 1 unit Transfusion now.
[2019-06-14] MEDS ORDERED: diphenhydrAMINE 25 MG CAP PO SCH (13:15)
--- NOTE | 2019-06-14 16:37 | PDOC.EVN ---
Event Note - Event Note Event Note: one unit PRBC is in.
[2019-06-14] MEDS: Zolpidem Tartrate 5 MG TAB PO PRN (21:06)
[2019-06-15] MEDS: Acetaminophen 500 MG TAB PO PRN ×2 (02:40→20:34)
[2019-06-15 05:07] LABS: Hemoglobin 7.4 g/dL (12.0-16.0)
--- NOTE | 2019-06-15 05:24 | PDOC.PP ---
Post Progress Note Post Day #: 2 Subjective: Doing well. PO intake tolerated: yes Flatus: yes Ambulation: yes Vital Signs (12 hours) Temp Pulse Resp BP Pulse Ox 06/15/19 02:35 77 133/63 06/14/19 21:15 97.6 F 87 16 155/70 H 98 Weight Weight 132 lb Vitals reviewed...mild HTN noted but no severe range - Physical Examination General: NAD Cardiovascular: no m/r/g Respiratory: clear to auscultation bilaterally Abdominal: + bowel sounds, lochia, no distention, appropriately TTP Extremities: negative homans (B) Psychiatric: A&Ox3, normal affect Result Diagrams: 06/15/19 04:43 06/12/19 19:16 Additional Labs: Post Labs Blood Type A POSITIVE 06/12/19 23:02 Hep Bs Antigen Non-Reactive S/CO (NonReactive) 06/04/19 16:25 Rubella IgG Antibody Less than 0.90 index (Immune >0.99) L 06/04/19 16:25 (1) Blood transfusion during current hospitalisation Code(s): PET6333 - Status: Acute (2) (spontaneous vaginal delivery) Code(s): O80 - ENCOUNTER FOR FULL-TERM UNCOMPLICATED DELIVERY Status: Acute - Assessment/Plan No further VB, Hct was 23 this AM. OK for DC to home this AM. We will have Case management see her prior to DC. F/U with [facility] advised or TAMP...in 4 weeks
--- NOTE | 2019-06-15 07:41 | DIS ---
DATE OF ADMISSION: 06/04/2019 DATE OF DISCHARGE: 06/15/2019 PRINCIPAL DIAGNOSES: 1. Third trimester . No care. 2. Positive amphetamine use. 3. Vaginal delivery. 4. Grand multiparous patient. 5. Anemia pre (on arrival) and post delivery. 6. Symptomatic anemia . 7. One unit of blood transfusion transfused during current hospitalization. HOSPITAL COURSE: In brief, this is a patient who was admitted by Dr. Ash on June 06, 2019 as the patient who had no care, who is a G9, P7, at 36 weeks. She initially arrived under custody and was with a guard. The patient is 39 years old. The patient was noted to have some elevated pressures, which may have been due to the finding of amphetamines upon arrival. She was offered induction of labor, but the patient actually declined. It was decided to keep the patient for observation. As the patient did not have a place to go home, it was decided to keep the patient until 37 weeks, at which time, we would induce labor for preeclampsia. At 37 weeks, the patient underwent Cytotec induction with a plan to give magnesium sulfate intrapartum. However, because the patient had a precipitous labor and delivery, intrapartum magnesium was not given. She delivered without incident and magnesium was started . Delivery occurred on 06/13/2019 at roughly 0400. Baby was vigorous, male. [facility] was notified per protocol due to the positive amphetamine/methamphetamine use. On day #1, the patient complained of some lightheadedness upon standing. The patient's hemoglobin value was 6.7, hematocrit value was 20, repeated, it was 6.1 hemoglobin and hematocrit of 18.7. Due to the lightheadedness and the drop in initial hematocrit from 28 to 18, one unit of blood was transfused. Symptomatically, she felt better and on June 15, 2019 at 0330, her a.m. blood draw showed a hematocrit value of 23.2, hemoglobin 7.4. Because there was no further bleeding, it was decided that the patient would be discharged home on 06/15/2019 at around noon. Case Management will see the patient. Blood pressures remained slightly mildly elevated, but in the nonsevere range. She will follow up with [facility] or [place] [facility] in 2 to 4 weeks for followup of her blood pressure. Case management will also help with post discharge placement. Job ID: [id number] EULOGIO
--- NOTE | 2019-06-15 08:15 | PDOC.EVN ---
Event Note - Event Note Event Note: Just called that BP was 177 systolic. Check out in progress with Dr bacon. Ordered procardia XL 30mg po X1 stat and we will recheck BPs Hold DC to home today
[2019-06-15] MEDS: Ferrous Sulfate 325 MG TAB PO SCH ×2 (08:36→17:22)
[2019-06-15] MEDS: Prenatal Vitamin 1 TAB PO SCH (08:36)
[2019-06-15] MEDS: Docusate Calcium (SURFAK) 240 MG CAP PO SCH ×2 (08:36→20:34)
[2019-06-15] MEDS: NIFEdipine XL 30 MG TAB PO SCH (08:37)
[2019-06-15 10:16] LABS: Amphetamine Not Detected (NotDetected); Barbiturates Screen Not Detected (NotDetected); Benzodiazepine Screen Not Detected (NotDetected); Cocaine Metabolite Screen Not Detected (NotDetected); Medtox Control Line Valid? VALID (VALID); Medtox Reader # READER 4; Methadone Not Detected (NotDetected); Methamphetamine Not Detected (NotDetected); Opiate Screen Not Detected (NotDetected); Oxycodone Screen Not Detected (NotDetected); Phencyclidine (PCP) Not Detected (NotDetected); THC/Cannabinoid Screen Not Detected (NotDetected); Tricyclic Screen Not Detected (NotDetected)
[2019-06-15] MEDS ORDERED: cloNIDine 0.1 MG TAB PO PRN (20:41)
[2019-06-15] MEDS: Zolpidem Tartrate 5 MG TAB PO PRN (21:48)
[2019-06-16] MEDS ORDERED: NIFEdipine XL 30 MG TAB PO SCH ×2 (09:00→09:45)
[2019-06-16] MEDS: Ferrous Sulfate 325 MG TAB PO SCH ×2 (10:04→17:53)
[2019-06-16] MEDS: Docusate Calcium (SURFAK) 240 MG CAP PO SCH ×2 (10:04→19:54)
[2019-06-16] MEDS: Prenatal Vitamin 1 TAB PO SCH (10:05)
[2019-06-16] MEDS: NIFEdipine XL 30 MG TAB PO SCH (10:06)
[2019-06-16] MEDS: Acetaminophen 500 MG TAB PO PRN ×2 (12:20→19:54)
[2019-06-16] MEDS: Zolpidem Tartrate 5 MG TAB PO PRN (21:55)
[2019-06-17] MEDS: Acetaminophen 500 MG TAB PO PRN (02:25)
--- NOTE | 2019-06-17 06:54 | DIS ---
DATE OF ADMISSION: 06/04/2019 DATE OF DISCHARGE: 06/17/2019 ADMITTING DIAGNOSES: 1. Intrauterine at 35 weeks and 5 days. 2. No care. 3. Methamphetamine use. 4. -induced hypertension. DISCHARGE DIAGNOSES: 1. Intrauterine at 35 weeks and 5 days. 2. No care. 3. Methamphetamine use. 4. -induced hypertension. 5. Preeclampsia. 6. Acute blood loss anemia status post 1 unit of packed red blood cells. PROCEDURES: 1. Primary term spontaneous vaginal delivery. 2. One unit of packed red blood cells. CONSULTATIONS: None. HOSPITAL COURSE: The patient is a 39-year-old grand multiparous female who presented to Labor and Delivery at 35 weeks and 5 days through the [facility] for elevated blood pressures. She was diagnosed with severe gestational hypertension and admitted to the hospital. After initial treatment with hydralazine x3, blood pressures had resolved back to normal to mild range and with no additional lab abnormalities. The patient remained in the hospital for in-house management where she stayed until 37 weeks gestation, where by induction of labor, she delivered a term spontaneous vaginal delivery. For complete details, please refer to the delivery note. Her course has been uncomplicated by uncontrolled blood pressures, requiring 24 hours of magnesium followed by blood pressure medications. Procardia XL 60 mg daily seemed to be sufficient to keep her pressures within acceptable range. Today is hospital day 13 and day 4. Today, she reports that she is tolerating p.o., voiding on her own, having decreased lochia and good pain control. She reports that she has had a minor headache that resolves with Tylenol since yesterday. Blood pressures for the last 24 hours have remained in the normal to mild range except for some borderline severe pressures yesterday morning around 10 o'clock with pressure of 161/90, most recent blood pressure of 114/60, heart rate of 107. In general, she appears to be in no acute distress. She is alert and oriented, cooperative and pleasant to interact with. Head is normocephalic, atraumatic. Fundus is firm. Extremities are nontender, nonedematous. Her post delivery post transfusion hemoglobin is 7.4 and 23.2. The patient is being discharged to home with Procardia XL 60 mg to be taken once a day for the next 2 weeks and ibuprofen 600 mg to be taken every 6 hours as needed for pain control and can take Tylenol [id number]. The patient has instructions to follow up with the [facility] [place] in 1 week for a blood pressure check and 6 weeks for routine visit. She is to seek medical attention if she experiences fever, increasing pain, or bleeding. Job ID: [id number]
[2019-06-17] MEDS ORDERED: NIFEdipine XL 60 MG TAB PO SCH (09:00)
--- NOTE | 2019-06-17 09:08 | DIS ---
DATE OF ADMISSION: 06/04/2019 DATE OF DISCHARGE: 06/16/2019 TIME OF SERVICE: 0730. SUMMARY OF HOSPITAL COURSE: Ms. Slater' discharge was held yesterday secondary to elevated blood pressure. She was started on Procardia XL 30 mg. Blood pressures since then have been less than 140s/90s this morning. PHYSICAL EXAMINATION: VITAL SIGNS: Blood pressure is 130/78, temperature 98.6, pulse 70, respirations 18. ABDOMEN: Soft and nontender. No rebound or guarding. Normal lochia. EXTREMITIES: No clubbing, cyanosis, or edema. IMPRESSION: Doing well with preeclampsia, chronic hypertension, and methamphetamine abuse on Procardia XL. PLAN: Discharge home. Procardia XL 30 mg daily. Keep scheduled followup. Job ID: [id number]
[2019-06-17] MEDS: Docusate Calcium (SURFAK) 240 MG CAP PO SCH (09:42)
[2019-06-17] MEDS: Ferrous Sulfate 325 MG TAB PO SCH (09:42)
[2019-06-17] MEDS: Prenatal Vitamin 1 TAB PO SCH (09:43)
[2019-06-17 11:41] VITALS: BP 136/86; TEMP 98.2
== END 2019-06-17 11:55 | disposition home or self-care (01) | DRG 806 ==
LOC: L&D/OP 15:35 → L&D 18:04 → EEVIPCON 18:04 → 3SW 06-05 18:16 → 3SE 06-11 23:08 → L&D 06-12 21:25 → 3SW 06-14 06:30
PROVIDERS: ADMIT Obstetrics & Gynecology; ATTEND Obstetrics & Gynecology
PROC: 10E0XZZ Delivery of Products of Conception, External Approach (ICD-10-PCS; principal; 2019-06-13)
PROC: 3E033VJ Introduction of Other Hormone into Peripheral Vein, Percutaneous Approach (ICD-10-PCS; 2019-06-13)
PROC: 30233N1 Transfusion of Nonautologous Red Blood Cells into Peripheral Vein, Percutaneous Approach (ICD-10-PCS; 2019-06-14)
DX: O99.324 Drug use complicating childbirth (principal); O98.82 Other maternal infectious and parasitic diseases complicating childbirth; Z37.0 Single live birth; O72.1 Other immediate postpartum hemorrhage; O10.92 Unspecified pre-existing hypertension complicating childbirth; D62 Acute posthemorrhagic anemia; F15.10 Other stimulant abuse, uncomplicated; F12.10 Cannabis abuse, uncomplicated; Z3A.35 35 weeks gestation of pregnancy; O99.02 Anemia complicating childbirth; O14.94 Unspecified pre-eclampsia, complicating childbirth; O13.4 Gestational [pregnancy-induced] hypertension without significant proteinuria, complicating childbirth; O11.4 Pre-existing hypertension with pre-eclampsia, complicating childbirth
CPT/HCPCS: 36415; 36416; 36430; 51702; 59025; 76805; 76819; 80053; 80306; 81001; 82570; 84156; 84550; 85014; 85018; 85025; 85027; 86762; 86780; 86850; 86900; 86901; 87081; 87340; 87389; 87491; 87591; 99285; J0360; J0702; J2001; J3475; P9016; Q0163